=== PATIENT | male | born 1970 ===

== ENCOUNTER 2018-04-20 14:29 | Emergency (ER) | payer OTHER ==
[2018-04-20 14:36] VITALS: BP 119/81; PULSE 100; RESP 18; TEMP 98.5; O2SAT 100
--- NOTE | 2018-04-20 15:06 | C.PDOC ---
History Of Present Illness 48 year old male patient presents to the ER with complaints of pain to the lateral aspect of left ankle. Patient reports he twisted his ankle on the steps last night. Pain aggravated by movement. Denies change in sensation or weakness. No other injury. No head trauma. PT request for pain medication. Time Seen by Provider: 04/20/18 14:37 Chief Complaint (Nursing): Lower Extremity Problem/Injury History Per: Patient History/Exam Limitations: no limitations Onset/Duration Of Symptoms: Hrs Current Symptoms Are (Timing): Still Present - Ankle/Foot Description Of Injury: Fell Past Medical History Reviewed: Historical Data, Nursing Documentation, Vital Signs Vital Signs: Last Vital Signs Temp 98.5 F 04/20/18 14:34 Pulse 100 H 04/20/18 14:34 Resp 18 04/20/18 14:34 BP 119/81 04/20/18 14:34 Pulse Ox 100 04/20/18 15:20 - [facility] Procedures INDIVID PSYCHOTHERAP NEC (06/14/13) OTHER GROUP THERAPY (06/14/13) Family History: States: No Known Family Hx - Social History Hx Alcohol Use: No Hx Substance Use: No Review Of Systems Except As Marked, All Systems Reviewed And Found Negative. Musculoskeletal: Positive for: Leg Pain (lateral aspect of left ankle pain) Physical Exam - Physical Exam Appears: Well, Non-toxic, No Acute Distress Skin: Normal Color, Warm, Dry Head: Atraumatic, Normacephalic Eye(s): bilateral: Normal Inspection, EOMI Nose: Normal Oral Mucosa: Moist Chest: Symmetrical Respiratory: No Accessory Muscle Use Extremity: Normal ROM, Tenderness (lateral left aspect of ankle ), No Calf Tenderness, Capillary Refill (<2 sec), Swelling (left lateral aspect of ankle) Extremity: Bilateral: Normal Color And Temperature, Normal ROM Pulses: Left Dorsalis Pedis: Normal, Right Dorsalis Pedis: Normal Neurological/Psych: Oriented x3, Normal Speech, Normal Motor, Normal Sensation Gait: Steady ED Course And Treatment O2 Sat by Pulse Oximetry: 100 (RA) Pulse Ox Interpretation: Normal Progress Note: Impression: 48 year old patient with pain in the lateral aspect of left ankle. Reassess: Patient offered XR, but patient declined. Pt offered splint, but patient also declined. Patient instructed RICE and to f/u with ED in 1-2 days. Disposition - Disposition Referrals: Ryan Archer III, MD [Staff Provider] - Disposition: HOME/ ROUTINE Disposition Time: 15:05 Condition: STABLE Additional Instructions: Rest, ice and elevate. Follow up with your bone doctor in 1-2 days. Prescriptions: Ibuprofen [Motrin] 600 mg PO Q6 PRN #20 tab PRN Reason: Pain, Mild (1-3) Instructions: Ankle Sprain (DC) Forms: [employer] (Kittitian) - Clinical Impression Clinical Impression: Ankle sprain - PA / [employer] / Resident Statement / has reviewed & agrees with the documentation as recorded. - Scribe Statement The provider has reviewed the documentation as recorded by the Maicol Garcia Do All medical record entries made by the Scribe were at my direction and personally dictated by me. I have reviewed the chart and agree that the record accurately reflects my personal performance of the history, physical exam, medical decision making, and the department course for this patient. I have also personally directed, reviewed, and agree with the discharge instructions and disposition.
== END 2018-04-20 15:21 | disposition home or self-care (01) ==
LOC: C.ER 14:29
DX: S93.402A Sprain of unspecified ligament of left ankle, initial encounter (principal); X50.1XXA Overexertion from prolonged static or awkward postures, initial encounter; Y92.9 Unspecified place or not applicable

== ENCOUNTER 2018-05-07 17:36 | Emergency (ER) | payer OTHER ==
[2018-05-07 17:36] VITALS: BMI 24.4
[2018-05-07 18:09] VITALS: PULSE 103; TEMP 98.4
--- NOTE | 2018-05-07 19:16 | C.PDOC ---
History Of Present Illness Patient has pain to left foot and requesting pain medicine. He reports has podiatry appointment next week. Per records patient has 5th metatarsal fracture of the left foot. He is in walking boot. Time Seen by Provider: 05/07/18 19:10 Chief Complaint (Nursing): Lower Extremity Problem/Injury History Per: Patient History/Exam Limitations: no limitations Onset/Duration Of Symptoms: Days Current Symptoms Are (Timing): Still Present Recent travel outside of the [place]: No Past Medical History Reviewed: Historical Data, Nursing Documentation, Vital Signs Vital Signs: Last Vital Signs Temp 98.4 F 05/07/18 18:06 Pulse 103 H 05/07/18 18:06 Resp 18 05/07/18 18:06 BP 130/88 05/07/18 18:06 Pulse Ox 99 05/07/18 19:17 - [facility] INDIVID PSYCHOTHERAP NEC (06/14/13) OTHER GROUP THERAPY (06/14/13) Family History: States: No Known Family Hx - Social History Hx Alcohol Use: No Hx Substance Use: No - Immunization History Hx Tetanus Toxoid Vaccination: No Hx Influenza Vaccination: No Hx Pneumococcal Vaccination: No Review Of Systems Musculoskeletal: Positive for: Foot Pain Neurological: Negative for: Weakness, Numbness Physical Exam - Physical Exam Appears: Non-toxic Skin: Normal Color, Warm, Dry Head: Atraumatic, Normacephalic Eye(s): bilateral: Normal Inspection Extremity: Tenderness (Mild left mid foot and lateral), Capillary Refill (<2 seconds), No Swelling Pulses: Left Dorsalis Pedis: Normal, Right Dorsalis Pedis: Normal Neurological/Psych: Oriented x3, Normal Speech, Normal Motor, Normal Sensation Gait: Steady ED Course And Treatment O2 Sat by Pulse Oximetry: 99 (Room air) Pulse Ox Interpretation: Normal Medical Decision Making Medical Decision Making: Patient with history of 5th metatarsal fracture of the left foot and in pain. No signs of new injury, cellulitis or other concern. Toradol IM ordered. Patient instructed to follow up with podiatry next week as scheduled. Disposition Counseled Patient/Family Regarding: Diagnosis, Need For Followup, Rx Given - Disposition Referrals: Macario Anderson DPM [Staff Provider] - Podiatry Clinic [Outside] Disposition: HOME/ ROUTINE Disposition Time: 19:16 Condition: STABLE Additional Instructions: Follow up with podiatry Prescriptions: Ibuprofen [Motrin] 600 mg PO Q8 #30 tab Instructions: Foot Fracture (DC) Forms: [employer] (Guinean) - POA Present On Arrival: None - Clinical Impression Clinical Impression: Fracture of metatarsal bone of left foot - PA / [employer]EL [employer]PER[employer] / Resident Statement MD/DO has reviewed & agrees with the documentation as recorded. - Scribe Statement The provider has reviewed the documentation as recorded by the Scribe Joselo Guadalupe All medical record entries made by the Miladisibmadhu were at my direction and personally dictated by me. I have reviewed the chart and agree that the record accurately reflects my personal performance of the history, physical exam, medical decision making, and the department course for this patient. I have also personally directed, reviewed, and agree with the discharge instructions and disposition.
[2018-05-07 19:34] VITALS: BP 121/74; RESP 16
[2018-05-07 21:25] VITALS: O2SAT 99
== END 2018-05-07 19:33 | disposition home or self-care (01) ==
LOC: C.ER 17:36
DX: S92.352A Displaced fracture of fifth metatarsal bone, left foot, initial encounter for closed fracture (principal); X58.XXXA Exposure to other specified factors, initial encounter
CPT/HCPCS: 96372; 99283; J1885